=== PATIENT | female | born 1950 | race Caucasian/White ===

== ENCOUNTER 2016-11-30 15:17 | Inpatient (IN) | payer MEDICARE ==
[~2016-11-30] VITALS: Ht 172.7 cm; Wt 148.4 kg
[2016-11-30 15:22] VITALS: BP 134/72
[2016-11-30] MEDS ORDERED: NOVAPLUS V0.09 MG/Ac IH (15:22)
[2016-11-30] MEDS ORDERED: METFORMIN HCL1000 MG PO (15:23)
[2016-11-30] MEDS ORDERED: LISINOPRIL20 MG PO (15:23)
[2016-11-30] MEDS ORDERED: BUSPIRONE HCL10 MG PO (15:23)
[2016-11-30] MEDS ORDERED: GABAPENTIN100 M2 PO (15:23)
[2016-11-30] MEDS ORDERED: LOVASTATIN20 MG PO (15:23)
[2016-11-30] MEDS ORDERED: ALLOPURINOL300 MG PO (15:23)
[2016-11-30] MEDS ORDERED: GLYCOLAX17 GM/DOSE PO (15:24)
[2016-11-30 15:50] LABS: HEMATOCRIT 45.8 % (37.0-47.0); HEMOGLOBIN 14.9 g/dl (12.0-16.0); MEAN CELL VOLUME 94.2 fl (81.0-99.0); MEAN CORPUSCULAR HGB 30.7 pg (27.0-31.0); MEAN CORPUSCULAR HGB CONC 32.5 g/dl (33.0-37.0); PLATELET COUNT AUTOMATED 203 10*3/uL (130-400); RED BLOOD COUNT 4.86 10*6/uL (4.10-5.10); RED CELL DISTRI WIDTH 14.9 % (0-14.5); WHITE BLOOD COUNT 24.4 10*3/uL (4.8-10.8)
[2016-11-30 16:05] LABS: ALBUMIN 3.4 gm/dl (3.1-4.5); ALKALINE PHOSPHATASE 86 U/L (45-117); BILIRUBIN, TOTAL 1.7 mg/dl (0.2-1.0); BUN 13 mg/dl (7-24); CARBON DIOXIDE 24 mmol/L (21-32); CHLORIDE 105 mmol/L (98-107); EST GLOM FILT AFRICAN AMERICAN > 60 ml/min; GLUCOSE 156 mg/dL (65-99); POTASSIUM 3.8 mmol/L (3.5-5.1); SGOT/AST 6 IU/L (3-35); SGPT/ALT 14 U/L (12-78); SODIUM 139 mmol/L (136-145); TOTAL PROTEIN 7.4 gm/dL (6.4-8.2)
[2016-11-30 16:24] LABS: LYMPHOCYTE # 1.7 10*3/uL (1.3-4.4); MONOCYTE # 1.5 10*3/uL (0.1-1.0); NEUTROPHIL # 21.2 10*3/uL (2.3-7.9); NEUTROPHILS 87 % (47-73); PLATELET SUFFICIENCY NORMAL (NORMAL); TOTAL CELLS COUNTED 100 #CELLS
[2016-11-30 17:54] VITALS: BP 116/62
[2016-11-30 18:23] LABS: CKMB 0.5 ng/ml (0.5-3.6)
[2016-11-30 20:00] VITALS: BP 118/57
[2016-12-01] VITALS: BP 118/92
[2016-12-01 00:53] LABS: CKMB 1.9 ng/ml (0.5-3.6)
[2016-12-01 02:28] LABS: BILIRUBIN NEGATIVE (NEGATIVE); BLOOD TRACE-LYSED (NEGATIVE); CLARITY CLEAR (CLEAR); COLOR YELLOW (YELLOW); GLUCOSE 3+ (NEGATIVE); KETONE NEGATIVE (NEGATIVE); LEUKO ESTERASE NEGATIVE (NEGATIVE); NITRITE NEGATIVE (NEGATIVE); PROTEIN NEGATIVE (NEGATIVE); SPECIFIC GRAVITY 1.015 (1.005-1.030); UROBILINOGEN 0.2 E.U./dl (0.2-1.0)
[2016-12-01 02:48] LABS: URINE REFLEX COMMENT YES (NO)
[2016-12-01 04:00] VITALS: BP 138/64
[2016-12-01 05:57] LABS: HEMATOCRIT 41.9 % (37.0-47.0); HEMOGLOBIN 13.7 g/dl (12.0-16.0); MEAN CELL VOLUME 94.8 fl (81.0-99.0); MEAN CORPUSCULAR HGB CONC 32.7 g/dl (33.0-37.0); MEAN PLATELET VOLUME 11.3 fl (9.6-12.3); PLATELET COUNT AUTOMATED 198 10*3/uL (130-400); RED BLOOD COUNT 4.42 10*6/uL (4.10-5.10); RED CELL DISTRI WIDTH 14.9 % (0-14.5); WHITE BLOOD COUNT 21.8 10*3/uL (4.8-10.8)
[2016-12-01 06:00] LABS: CKMB 1.6 ng/ml (0.5-3.6)
[2016-12-01 06:18] LABS: ALBUMIN 2.9 gm/dl (3.1-4.5); ALKALINE PHOSPHATASE 71 U/L (45-117); BILIRUBIN, TOTAL 0.8 mg/dl (0.2-1.0); BUN 18 mg/dl (7-24); CARBON DIOXIDE 26 mmol/L (21-32); CHLORIDE 105 mmol/L (98-107); EST GLOM FILT AFRICAN AMERICAN > 60 ml/min; GLUCOSE 298 mg/dL (65-99); POTASSIUM 3.6 mmol/L (3.5-5.1); SGOT/AST 7 IU/L (3-35); SGPT/ALT 12 U/L (12-78); SODIUM 140 mmol/L (136-145); TOTAL PROTEIN 6.6 gm/dL (6.4-8.2)
[2016-12-01 06:19] LABS: HEMOGLOBIN A1c 6.5 % (4.8-5.6)
[2016-12-01 06:20] LABS: INTERNATIONAL NORM RATIO 1.1 (2.0-3.5); PROTHROMBIN TIME 11.5 SECONDS (9.0-12.4)
[2016-12-01 07:47] LABS: MONOCYTE # 0.7 10*3/uL (0.1-1.0); NEUTROPHIL # 19.2 10*3/uL (2.3-7.9); NEUTROPHILS 88 % (47-73); TOTAL CELLS COUNTED 100 #CELLS
[2016-12-01 07:48] LABS: PLATELET SUFFICIENCY NORMAL (NORMAL)
[2016-12-01 08:00] VITALS: BP 109/61
[2016-12-01 12:00] VITALS: BP 101/51
[2016-12-01 16:00] VITALS: BP 115/57
[2016-12-01 20:00] VITALS: BP 115/51
[2016-12-02] VITALS: BP 118/62
[2016-12-02 08:04] VITALS: BP 115/81
[2016-12-02] MEDS ORDERED: TRAMADOL HCL50 MG PO (10:03)
[2016-12-02] MEDS ORDERED: SYMBICORT1 AE1 INH (10:03)
[2016-12-02 12:05] VITALS: BP 113/63
[2016-12-02] MEDS ORDERED: PREDNISONE50 MG PO (15:51)
[2016-12-02] MEDS ORDERED: LEVAQUIN750 M1 PO (15:51)
[2016-12-02 16:00] VITALS: BP 119/69
[2016-12-02 16:45] LABS: BASO % 0.1 % (0.0-1.0); HEMATOCRIT 39.9 % (37.0-47.0); HEMOGLOBIN 12.9 g/dl (12.0-16.0); IG # 0.2 10*3/uL (0.0-0.1); LYMPH # 1.2 10*3/uL (1.3-4.4); LYMPH % 6.3 % (27.0-41.0); MEAN CELL VOLUME 95.5 fl (81.0-99.0); MEAN CORPUSCULAR HGB 30.9 pg (27.0-31.0); MEAN CORPUSCULAR HGB CONC 32.3 g/dl (33.0-37.0); MEAN PLATELET VOLUME 10.9 fl (9.6-12.3); MONO # 0.8 10*3/uL (0.1-1.0); MONO % 4.2 % (3.0-9.0); NEUT % 88.6 % (47.0-73.0); PLATELET COUNT AUTOMATED 239 10*3/uL (130-400); RED BLOOD COUNT 4.18 10*6/uL (4.10-5.10); RED CELL DISTRI WIDTH 15.3 % (0-14.5); WHITE BLOOD COUNT 19.2 10*3/uL (4.8-10.8)
== END 2016-12-02 18:22 | disposition home or self-care (01) | DRG 871 ==
LOC: ED 15:17 → EDHOLD 16:39 → 5E 16:39
PROVIDERS: Family Medicine Adult Medicine; Internal Medicine; Nurse Practitioner Family
PROC: 5A09457 Assistance with Respiratory Ventilation, 24-96 Consecutive Hours, Continuous Positive Airway Pressure (ICD-10-PCS; principal; 2016-11-30)
DX: A41.9 Sepsis, unspecified organism (principal); J96.21 Acute and chronic respiratory failure with hypoxia; J18.9 Pneumonia, unspecified organism; J44.0 Chronic obstructive pulmonary disease with (acute) lower respiratory infection; I10 Essential (primary) hypertension; E11.65 Type 2 diabetes mellitus with hyperglycemia; F17.200 Nicotine dependence, unspecified, uncomplicated; J84.10 Pulmonary fibrosis, unspecified; Z82.49 Family history of ischemic heart disease and other diseases of the circulatory system; Z90.49 Acquired absence of other specified parts of digestive tract; Z79.899 Other long term (current) drug therapy

== ENCOUNTER → 2016-12-12 | Outpatient (CLI) | payer MEDICARE ==
[~2016-12-12] MED LIST: ALLOPURINOL300 MG PO; BUSPIRONE HCL10 MG PO; GABAPENTIN100 M2 PO; GLYCOLAX17 GM/DOSE PO; LEVAQUIN750 M1 PO; LISINOPRIL20 MG PO; LOVASTATIN20 MG PO; METFORMIN HCL1000 MG PO; NOVAPLUS V0.09 MG/Ac IH; PREDNISONE50 MG PO; SYMBICORT1 AE1 INH; TRAMADOL HCL50 MG PO
== END | disposition home or self-care (01) ==
LOC: RESCLI 02:28
DX: I10 Essential (primary) hypertension (principal); J41.8 Mixed simple and mucopurulent chronic bronchitis; E55.9 Vitamin D deficiency, unspecified; G62.9 Polyneuropathy, unspecified; E78.2 Mixed hyperlipidemia; F41.9 Anxiety disorder, unspecified; K59.04 Chronic idiopathic constipation; E11.40 Type 2 diabetes mellitus with diabetic neuropathy, unspecified; J44.9 Chronic obstructive pulmonary disease, unspecified; E66.01 Morbid (severe) obesity due to excess calories; Z99.81 Dependence on supplemental oxygen; Z72.0 Tobacco use; Z88.1 Allergy status to other antibiotic agents; Z68.43 Body mass index [BMI] 50.0-59.9, adult

== ENCOUNTER → 2017-02-09 | Outpatient (CLI) | payer MEDICARE | END | disposition home or self-care (01) | LOC: CARD 03:48 | DX: I49.9 Cardiac arrhythmia, unspecified (principal) ==

== ENCOUNTER → 2017-02-19 | Outpatient (CLI) | payer MEDICARE | END | disposition home or self-care (01) | LOC: CT 11:00 | DX: J84.10 Pulmonary fibrosis, unspecified (principal); R06.02 Shortness of breath; R05 Cough; Z72.0 Tobacco use ==

== ENCOUNTER → 2017-03-28 | Outpatient (CLI) | payer MEDICARE ==
[2017-03-28 09:23] LABS: BASO # 0.1 10*3/uL (0.0-0.1); BASO % 0.7 % (0.0-1.0); EOS # 0.2 10*3/uL (0.0-0.4); EOS % 1.9 % (1.0-4.0); HEMATOCRIT 44.6 % (37.0-47.0); HEMOGLOBIN 14.4 g/dl (12.0-16.0); IG # 0.1 10*3/uL (0.0-0.1); LYMPH # 3.2 10*3/uL (1.3-4.4); LYMPH % 31.7 % (27.0-41.0); MEAN CELL VOLUME 95.3 fl (81.0-99.0); MEAN CORPUSCULAR HGB 30.8 pg (27.0-31.0); MEAN CORPUSCULAR HGB CONC 32.3 g/dl (33.0-37.0); MEAN PLATELET VOLUME 10.7 fl (9.6-12.3); MONO # 0.7 10*3/uL (0.1-1.0); MONO % 7.3 % (3.0-9.0); NEUT # 5.8 10*3/uL (2.3-7.9); NEUT % 57.8 % (47.0-73.0); PLATELET COUNT AUTOMATED 219 10*3/uL (130-400); RED BLOOD COUNT 4.68 10*6/uL (4.10-5.10); RED CELL DISTRI WIDTH 15.8 % (0-14.5); WHITE BLOOD COUNT 10.1 10*3/uL (4.8-10.8)
[2017-03-28 09:50] LABS: ALBUMIN 3.3 gm/dl (3.1-4.5); BILIRUBIN, DIRECT 0.1 mg/dL (0.0-0.2); BILIRUBIN, TOTAL 0.4 mg/dl (0.2-1.0); TOTAL PROTEIN 6.7 gm/dL (6.4-8.2)
[2017-03-28 10:03] LABS: HEMOGLOBIN A1c 7.1 % (4.8-5.6)
== END | disposition home or self-care (01) ==
LOC: LAB 08:49
PROVIDERS: Internal Medicine
DX: E11.9 Type 2 diabetes mellitus without complications (principal); D50.9 Iron deficiency anemia, unspecified; E55.9 Vitamin D deficiency, unspecified; E78.4 Other hyperlipidemia; D72.829 Elevated white blood cell count, unspecified

== ENCOUNTER → 2017-07-09 | Outpatient (CLI) | payer MEDICARE | END | disposition home or self-care (01) | LOC: LAB 12:39 | DX: J44.9 Chronic obstructive pulmonary disease, unspecified (principal); R68.83 Chills (without fever); R53.83 Other fatigue; L02.818 Cutaneous abscess of other sites; R06.02 Shortness of breath; F17.200 Nicotine dependence, unspecified, uncomplicated ==

== ENCOUNTER → 2017-09-27 | Outpatient (CLI) | payer MEDICARE ==
[2017-09-27 09:40] LABS: ALBUMIN 3.5 gm/dl (3.1-4.5); ALKALINE PHOSPHATASE 85 U/L (45-117); BILIRUBIN, DIRECT 0.1 mg/dL (0.0-0.2); BUN 13 mg/dl (7-24); CHLORIDE 106 mmol/L (98-107); CHOLESTEROL 157 mg/dL (<200); CREATININE 0.71 mg/dL (0.55-1.02); HDL CHOLESTEROL 61 mg/dl (40-60); LDL CHOLESTEROL 68 mg/dL (9-159); POTASSIUM 4.4 mmol/L (3.5-5.1); SGOT/AST 13 IU/L (3-35); SGPT/ALT 16 U/L (12-78); SODIUM 138 mmol/L (136-145); TOTAL PROTEIN 7.2 gm/dL (6.4-8.2); TRIGLYCERIDES 139 mg/dl (<150); URIC ACID 4.2 mg/dL (2.6-6.0); VLDL CHOLESTEROL 28 mg/dL (6-40)
== END ==
LOC: LAB 09:04
PROVIDERS: Internal Medicine
DX: I10 Essential (primary) hypertension (principal); E11.9 Type 2 diabetes mellitus without complications; E78.4 Other hyperlipidemia; M10.9 Gout, unspecified; D51.9 Vitamin B12 deficiency anemia, unspecified; L98.8 Other specified disorders of the skin and subcutaneous tissue; L65.9 Nonscarring hair loss, unspecified

== ENCOUNTER 2018-01-12 11:39 | Emergency (ER) | payer MEDICARE ==
[~2018-01-12] VITALS: Ht 170.1 cm; Wt 163.3 kg
[2018-01-12] MEDS ORDERED: PREDNISONE20 M1 PO (12:31)
== END 2018-01-12 12:37 | disposition home or self-care (01) ==
LOC: ED 11:39
DX: L25.9 Unspecified contact dermatitis, unspecified cause (principal); E11.9 Type 2 diabetes mellitus without complications; F17.200 Nicotine dependence, unspecified, uncomplicated; Z88.1 Allergy status to other antibiotic agents; Z79.899 Other long term (current) drug therapy

== ENCOUNTER → 2018-03-12 | Outpatient (CLI) | payer MEDICARE ==
[~2018-03-12] MED LIST changes: +PREDNISONE20 M1 PO
== END | disposition home or self-care (01) ==
LOC: RAD 09:09
DX: M25.561 Pain in right knee (principal)

== ENCOUNTER 2019-02-18 16:32 | Emergency (ER) | payer MEDICARE ==
[~2019-02-18] VITALS: Ht 165.1 cm; Wt 154.2 kg
== END 2019-02-18 18:45 | disposition home or self-care (01) ==
LOC: ED 16:32
DX: S93.401A Sprain of unspecified ligament of right ankle, initial encounter (principal); M79.671 Pain in right foot; F17.200 Nicotine dependence, unspecified, uncomplicated; Z88.1 Allergy status to other antibiotic agents; Z79.899 Other long term (current) drug therapy; W22.8XXA Striking against or struck by other objects, initial encounter; Y93.89 Activity, other specified; Y92.89 Other specified places as the place of occurrence of the external cause; Y99.8 Other external cause status

== ENCOUNTER 2020-08-18 18:18 | Emergency (ER) | payer MEDICARE ==
[~2020-08-18] VITALS: Ht 170.1 cm; Wt 181.4 kg
[2020-08-18] MEDS ORDERED: NORCO 5-325 TA1 EACH PO (23:10)
== END 2020-08-18 23:32 | disposition home or self-care (01) ==
LOC: ED 18:18
DX: S82.831A Other fracture of upper and lower end of right fibula, initial encounter for closed fracture (principal); I10 Essential (primary) hypertension; E11.9 Type 2 diabetes mellitus without complications; Z88.1 Allergy status to other antibiotic agents; Z79.899 Other long term (current) drug therapy; Z72.0 Tobacco use; W22.8XXA Striking against or struck by other objects, initial encounter; Y93.89 Activity, other specified; Y92.89 Other specified places as the place of occurrence of the external cause; Y99.8 Other external cause status

== ENCOUNTER → 2020-08-24 | Outpatient (CLI) | payer MEDICARE ==
[~2020-08-24] MED LIST changes: +NORCO 5-325 TA1 EACH PO
== END | disposition home or self-care (01) ==
LOC: ORTHO 05:47
PROVIDERS: ATTEND Psychiatry & Neurology Psychiatry
DX: S82.831A Other fracture of upper and lower end of right fibula, initial encounter for closed fracture (principal); X58.XXXA Exposure to other specified factors, initial encounter; Y93.89 Activity, other specified; Y92.89 Other specified places as the place of occurrence of the external cause; Y99.8 Other external cause status